=== PATIENT | female | born 1955 | race Caucasian/White ===

== ENCOUNTER 2021-01-22 14:15 | Emergency (ER) | payer OTHER | END 2021-01-22 15:10 | disposition left against medical advice (07) | LOC: ED 14:15 | DX: R69 Illness, unspecified (principal) ==

== ENCOUNTER → 2021-01-22 | Outpatient (CLI) | payer OTHER ==
[2021-01-22 13:13] LABS: HEMATOCRIT 37.7 % (37.0-47.0); HEMOGLOBIN 12.6 g/dL (12.5-16.0)
== END ==
LOC: LAB 12:57 → EDSTATUS 12:58
PROVIDERS: Internal Medicine Medical Oncology
DX: D50.9 Iron deficiency anemia, unspecified (principal)